=== PATIENT | male | born 1995 | race Caucasian/White ===

== ENCOUNTER 2016-10-29 16:07 | Emergency (ER) | payer BC, MEDICAID ==
[2016-10-29] MEDS ORDERED: Morphine 4 MG/ML Syringe IVPUSH ONE ×2 (16:15→17:12)
[2016-10-29] MEDS ORDERED: Sodium Chloride 0.9% 1,000 ML IV ONE (16:15)
[2016-10-29] MEDS ORDERED: Iopamidol 755 Mg/ML 100 ML Bottle IV ONE (16:23)
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
[2016-10-29] MEDS ORDERED: Potassium Chloride 20 MEQ Tab.ER PO ONE (16:58)
[2016-10-29] MEDS ORDERED: HYDROmorphone 2 MG/ML SDV IVPUSH ONE (17:55)
--- NOTE | 2016-11-01 13:25 | CR ---
INDICATION: Trauma. RIGHT FEMUR: Four views of the right femur revealed comminuted fracture intertrochanteric at the right femur with adequate position and alignment of the fracture fragments. The hip joint appears to be intact. The adjacent pelvis is intact. IMPRESSION: Comminuted fracture intertrochanteric right femur in good position and alignment. MTDD
--- NOTE | 2016-11-01 13:26 | CR ---
INDICATION: Trauma. RIGHT FOREARM: Three views of the right elbow revealed severely comminuted fracture of the proximal radius and ulna at the elbow joint with joint effusion and some offset of fracture fragments. The proximal large fracture fragment of the ulna is offset approximately 5.6 mm posteriorly and slightly posteriorly angulated at its distal aspect. Large radial chip fracture fragment located anteriorly is anteriorly offset approximately 10 mm. IMPRESSION: Comminuted fractures of the proximal radius and ulna with significant deformity. Joint effusion noted. MTDD
== END 2016-10-29 18:00 ==
LOC: FB.ED 16:07
DX: S72.141A Displaced intertrochanteric fracture of right femur, initial encounter for closed fracture (principal); S52.101A Unspecified fracture of upper end of right radius, initial encounter for closed fracture; S52.001A Unspecified fracture of upper end of right ulna, initial encounter for closed fracture; Z91.030 Bee allergy status; F17.210 Nicotine dependence, cigarettes, uncomplicated; V89.2XXA Person injured in unspecified motor-vehicle accident, traffic, initial encounter
CPT/HCPCS: 29105; 36415; 73090; 73552; 74177; 80048; 82550; 85025; 85610; 93005; 96361; 96374; 96375; 96376; 99285; A9270; J1170; J2270; J7040; Q9967

== ENCOUNTER 2017-04-15 10:16 | Emergency (ER) | payer BC, MEDICAID ==
[2017-04-15 11:10] VITALS: BP 108/50
[2017-04-15] MEDS ORDERED: HYDROmorphone 2 MG/ML SDV IM ONE ×2 (11:26→11:28)
[2017-04-15] MEDS ORDERED: Ondansetron 4 MG/2 ML SDV IM ONE (11:28)
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
== END 2017-04-15 12:30 | disposition home or self-care (01) ==
LOC: FB.ED 10:16
DX: S39.012A Strain of muscle, fascia and tendon of lower back, initial encounter (principal); X50.1XXA Overexertion from prolonged static or awkward postures, initial encounter
CPT/HCPCS: 96372; 99283; J1170; J2405

== ENCOUNTER 2019-02-18 06:12 | Emergency (ER) | payer BC ==
[2019-02-18] MEDS ORDERED: Ketorolac 60 MG/2 ML SDV IM ONE (06:30)
[2019-02-18] MEDS ORDERED: hydrOXYzine HCl 50 MG/ML SDV IM ONE (06:31)
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
[2019-02-18] MEDS ORDERED: Tamsulosin 0.4 MG Cap.ER PO ONE (08:45)
[2019-02-18 10:46] VITALS: BP 113/64
== END 2019-02-18 09:06 | disposition home or self-care (01) ==
LOC: FB.ED 06:12
DX: N13.2 Hydronephrosis with renal and ureteral calculous obstruction (principal); R79.89 Other specified abnormal findings of blood chemistry; F17.200 Nicotine dependence, unspecified, uncomplicated; Z91.030 Bee allergy status
CPT/HCPCS: 36415; 74176; 80048; 81001; 85025; 96372; 99284; A9270; J1885; J3410